=== PATIENT | male | born 1995 | race African-American/Black ===

== ENCOUNTER 2016-08-15 08:33 | Emergency (ER) | payer OTHER ==
[~2016-08-15] VITALS: Ht 180.3 cm; Wt 140.0 kg
[2016-08-15 09:27] VITALS: BP 144/87; PULSE 64; RESP 22; TEMP 97.2; O2SAT 97
[2016-08-15 09:44] VITALS: BP 119/67; PULSE 77; RESP 20; O2SAT 96
[2016-08-15] MEDS ORDERED: PRED20 PO (09:53)
[2016-08-15] MEDS ORDERED: ZITHTAB PO (09:53)
--- NOTE | 2016-08-15 09:53 | PD ---
HPI Chief Complaint: Cold / Flu Symptoms Time Seen by Provider: 09:47 Travel History International Travel<30 days: No Contact w/Intl Traveler<30days: No Traveled to known affect area: No History of Present Illness HPI Patient is a healthy 21-year-old male presents emergency Department with complaint of flulike symptoms. Patient has been ill for 3 days with cough, cold , chest congestion. Subjective fevers and chills but nothing documented. Patient states that this symptom most bothersome in his cough. This morning he states he coughed so hard he had a small amount of blood streaked within the sputum. No large volume hemoptysis, clot. He denies any history of blood clots , bleeding disorder and self or family. No recent travel, calf pain or swelling. PFSH Past Medical History Medical History: Denies Significant Hx Social History Alcohol Use: Yes (occassional) Tobacco Use: No Substance Use: Yes (marijuana) Allergies-Medications (Allergen,Severity, Reaction): Coded Allergies: No Known Allergies (Unverified , 08/15/16) Reported Meds & Prescriptions Reported Meds & Active Scripts Active Zithromax Z-Russell (Azithromycin) 250 Mg Dspk 250 Mg PO DIRECTED 500 MG (2 tabs) day 1, then 1 tab days 2-5. Prednisone 20 Mg Tab 40 Mg PO DAILY Take 40 mg (2 tablets) daily for 5 days Review of Systems Except as stated in HPI: all other systems reviewed are Neg Physical Exam Narrative GENERAL: Well-appearing male in no acute distress SKIN: Warm and dry. HEAD: Normocephalic. EYES: Pupils equal and round. No scleral icterus. No injection or drainage. ENT: No nasal bleeding or discharge. Mucous membranes pink and moist. Posterior pharynx is clear. NECK: Supple without lymphadenopathy CARDIOVASCULAR: Regular rate and rhythm. No murmur appreciated. RESPIRATORY: No accessory muscle use. Minimal extra wheeze. Persistent harsh cough GASTROINTESTINAL: Obese MUSCULOSKELETAL: No obvious deformities. No edema. NEUROLOGICAL: Awake and alert. Normal speech. PSYCHIATRIC: Appropriate mood and affect; insight and judgment normal. Data Data Last Documented VS Vital Signs Date Time Temp Pulse Resp B/P Pulse Ox O2 Delivery O2 Flow Rate FiO2 08/15/16 09:44 77 20 119/67 96 Room Air 08/15/16 09:27 97.2 [facility] Medical Decision Making Medical Screen Exam Complete: Yes Emergency Medical Condition: Yes Medical Record Reviewed: Yes Differential Diagnosis healthy 21-year-old male here with complaint of 3 days of cough, cold, chest congestion and now scant hemoptysis streaked within the sputum. Symptoms are consistent with bronchitis. My suspicion for home and any embolism, tuberculosis or significant pneumonia is exceedingly low. Narrative Course Patient was reassured and will be discharged home with symptomatic management. Diagnosis Primary Impression: Bronchitis Referrals: Primary Care Physician as needed Additional Instructions: Finish antibiotics, steroids as prescribed. Return to the emergency department for the warning signs discussed. Med/Other Pt SpecificInfo: Prescription(s) given Scripts Azithromycin (Zithromax Z-Russell)250 Mg [id number] Mg PO DIRECTED #1 DSPK Ref 0 500 MG (2 tabs) day 1, then 1 tab days 2-5. Prov:Evelyn Huitron MD 08/15/16 Prednisone 20 Mg Tab40 Mg PO DAILY #3 TAB Ref 0 Take 40 mg (2 tablets) daily for 5 days Prov:Evelyn Huitron MD 08/15/16 Disposition: 01 DISCHARGE HOME Condition: Stable Evelyn Huitron MD Aug 15, 2016 09:53
== END 2016-08-15 10:30 | disposition home or self-care (01) ==
LOC: NEPB 08:33
DX: J40 Bronchitis, not specified as acute or chronic (principal)
CPT/HCPCS: 99282